=== PATIENT | male | born 1945 | race Caucasian/White ===

== ENCOUNTER 2017-04-12 06:50 | Day surgery (SDC) | payer MEDICARE, BC ==
[2017-04-12] VITALS (8 sets, daily range): BP systolic 102–144; BP diastolic 55–81
[~2017-04-12] VITALS: Ht 179.1 cm; Wt 95.3 kg
[2017-04-12] MEDS ORDERED: LIPITOR20 MG ORAL (07:29)
[2017-04-12] MEDS ORDERED: PAXIL10 MG ORAL (07:29)
[2017-04-12] MEDS ORDERED: EPINEPHrine 1mg/1ml Amp ONE (08:46)
[2017-04-12] MEDS ORDERED: Bupivacaine 0.25% Inj 30ml INJ ONE (08:46)
[2017-04-12] MEDS ORDERED: Lidocaine 1% 10mg/ml/EPI 0.01mg/ml 50ml INJ ONE (08:47)
[2017-04-12] MEDS ORDERED: Bupivacaine 0.5% Inj 30 ml vial INJ ONE (08:47)
[2017-04-12] MEDS ORDERED: LR 1000ml 1,000 ML IVLG SCH (09:26)
--- NOTE | 2017-04-12 09:26 | Anethesia Preoperative Eval ---
Anesthesia Pre-op PMH/ROS General Date of Evaluation: Apr 12, 2017 Anesthesiologist: Aldo ASA Score: ASA 2 Mallampati Score Class I : Soft palate, uvula, fauces, pillars visible Class II: Soft palate, uvula, fauces visible Class III: Soft palate, base of uvula visible Class IV: Only hard plate visible Mallampati Classification: Class III Surgeon: Javier Diagnosis: Left knee pain Surgical Procedure: Left knee arthroscopy Anesthesia History: none Family History: no anesthesia problems Allergies: Coded Allergies: No Known Allergies (Unverified , 04/12/17) Medications: see eMAR Past Medical History Cardiovascular: Reports: other - HLD, Denies: HTN, CAD, GA, valve dz, arrhythmia Pulmonary: Denies: asthma, COPD, DEDE, other Gastrointestinal/Genitourinary: Reports: other - prostate CA, Denies: GERD, CRI, ESRD Neurologic/Psychiatric: Reports: depression/anxiety, Denies: dementia, CVA, TIA, other Endocrine: Denies: DM, hypothyroidism, steroids, other HEENT: Denies: cataract (L), cataract (R), glaucoma, [place] (L), [place] (R), other Hematology/Immune: Denies: anemia, DVT, bleeding disorder, other Musculoskeletal/Integumentary: Denies: OA, RA, DJD, DDD, edema, other Other: obesity PSxH Narrative: lumbar fusion, prostatectomy Anesthesia Pre-op Phys. Exam Physician Exam Last Vital Signs Date Time Temp Pulse Resp B/P (MAP) Pulse Ox O2 Delivery O2 Flow Rate FiO2 04/12/17 07:32 98.0 59 20 136/81 97 Room Air Constitutional: NAD Cardiovascular: RRR Respiratory: CTA Airway Exam Mallampati Score: Class III MO: full ROM: full Teeth: intact Anesthesia Pre-op A/P Labs see chart Studies Pre-op Studies: EKG - sr Risk Assessment & Plan Assessment: ASA II Plan: GA Status Change Before Surgery: No Pre-Antibiotics Drug: Ancef 2g Given Within 1 Hr of Incision: JUANA Das M.D. Apr 12, 2017 09:26
[2017-04-12] MEDS ORDERED: Ketorolac 30mg Inj IV PRN (09:30)
[2017-04-12] MEDS ORDERED: Hydromorphone 0.5mg/0.5ml inj IVP PRN (09:30)
[2017-04-12] MEDS ORDERED: DiphenhydrAMINE 50mg/ml Inj IVP PRN (09:30)
[2017-04-12] MEDS ORDERED: Midazolam 2mg/2ml Inj IVP PRN (09:30)
[2017-04-12] MEDS ORDERED: fentaNYL 100 mcg/2 mL IV PRN (09:30)
[2017-04-12] MEDS ORDERED: LORazepam Inj 2mg/ml 1ml IV PRN (09:30)
--- NOTE | 2017-04-12 09:59 | Pre-Procedure Note/Attestation ---
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 I attest that, if there was a reasonable possibility of needing a blood transfusion, the patient (or the patient's legal home office representative) was given the [facility] standardized written summary, pursuant to the [place] Blood Safety Act ([place] Health and Safety Code # 1645, as amended). I attest that I re-evaluated the patient just prior to the surgery and that there has been no change in the patient's H&P, except as documented below: CORAL LABOY Apr 12, 2017 09:59
[2017-04-12] MEDS ORDERED: Tylenol #3 tab (300mg/30mg) ORAL PRN (10:00)
[2017-04-12] MEDS ORDERED: fentaNYL 100 mcg/2 mL IV ONE (10:00)
[2017-04-12] MEDS ORDERED: HYDROmorphone 1mg/ml Carpuject SUBQ PRN (10:00)
[2017-04-12] MEDS ORDERED: Propofol 200mg/20ml IV ONE (10:00)
[2017-04-12] MEDS ORDERED: LR 1000ml ONE (10:00)
[2017-04-12] MEDS ORDERED: NS Irrig 4000ml IRRIG ONE (10:00)
[2017-04-12] MEDS ORDERED: Lidocaine 1% MPF 10mg/ml 5ml ONE (10:00)
[2017-04-12] MEDS ORDERED: D5 1/2NS 1,000 ML IV SCH (10:00)
[2017-04-12] MEDS ORDERED: Ketorolac 30mg Inj ONE (10:00)
[2017-04-12] MEDS ORDERED: Midazolam 2mg/2ml Inj ONE (10:00)
[2017-04-12] MEDS ORDERED: Norco 5mg/325mg tab ORAL PRN (10:00)
--- NOTE | 2017-04-12 10:22 | Immediate Post-Op Evaluation ---
Immediate Post-Op Evalulation Immediate Post-Op Evalulation Procedure: Left knee arthroscopy, scar tissue excision Date of Evaluation: Apr 12, 2017 Time of Evaluation: 11:16 IV Fluids: 800 Blood Products: 0 Estimated Blood Loss: min Urinary Output: 0 Blood Pressure Systolic: 103 Blood Pressure Diastolic: 59 Pulse Rate: 67 Respiratory Rate: 16 O2 Sat by Pulse Oximetry: 100 Temperature (Fahrenheit): 97.8 Pain Score (1-10): 0 Nausea: No Vomiting: No Complications 0 Patient Status: awake, reacts, patent, none Hydration Status: adequate Drug: Ancef 2g Given Within 1 Hr of Incision: Yes Time Given: 10:05 JUANA MOLINA M.D. Apr 12, 2017 10:22
--- NOTE | 2017-04-12 10:24 | 48 Hour Post Anesthesia Eval ---
Post Anesthesia Evaluation Procedure: Left knee arthroscopy, scar tissue excision Date of Evaluation: Apr 12, 2017 Airway: patent Nausea: No Vomiting: No Pain Intensity: 0 Hydration Status: adequate Cardiopulmonary Status: at baseline Mental Status/LOC: patient returned to baseline Post-Anesthesia Complications: 0 Follow-up care needed: ready to discharge JUANA MOLINA M.D. Apr 12, 2017 10:24
--- NOTE | 2017-04-12 16:15 | Operative Note - Dictated ---
DATE OF OPERATION: 04/12/2017 SURGEON: Jhonny Herrera M.D. DBA: None. ANESTHESIA: General plus local. COMPLICATIONS: None. ANTIBIOTICS: Ancef. PREOPERATIVE DIAGNOSES: 1. Left knee patellar clunk syndrome. 2. Left knee synovitis. POSTOPERATIVE DIAGNOSES: 1. Left knee patellar clunk syndrome. 2. Left knee synovitis. PROCEDURE PERFORMED: Left knee arthroscopy (status post total knee arthroplasty) with: 1. Synovectomy. 2. Suprapatellar plica resection. BACKGROUND: The patient underwent a posterior substituting total knee arthroplasty performed elsewhere. He has done very well postoperatively save for developing patellar clunk syndrome. All risks, benefits, and alternatives of surgical intervention were discussed in great detail. Risks included, but were not limited to, bleeding, infection, neurovascular injury, need for additional surgical intervention, failure of pain relief, arthrofibrosis, complications of anesthesia, blood clots, stroke, heart attack, and potentially . He understood these risks, amongst others including recurrence, and consent was signed. PROCEDURE IN DETAIL: The patient was brought into the operating room and placed supine on the operating room table. The left knee was correctly verified for surgical site and prepped and draped in standard sterile fashion. Examination under anesthesia revealed no medial or lateral laxity, extension to 0 degrees, and flexion to 155 degrees. Anterolateral and anteromedial portals were marked and injected with 20 mL of 0.25% Marcaine with epinephrine. A diagnostic arthroscopy was then undertaken. It revealed the followin. Diffuse synovitis. 2. Significant synovitis of suprapatellar pouch. 3. Large suprapatellar plica connecting to the patellar implant. 4. Normal medial gutter. 5. Normal lateral gutter. 6. Well-positioned implant medially and laterally. 7. No polyethylene wear either medially or laterally. 8. Normal polyethylene post. In the suprapatellar region and down through the superior aspect of the gutters, a synovectomy was performed using a radiofrequency device. The large suprapatellar plica causing the patellar clunk was then resected in its entirety. A significant amount of tissue was resected. All fluid and debris were evacuated from the knee. A 10 mL of 0.25% Marcaine was injected. The wounds were copiously irrigated and reapproximated using 4-0 Monocryl in a subcuticular fashion. Steri-Strips were used over Mastisol. Dry sterile dressing was applied. A compressive stocking was fitted. I attest I performed the entire operation. He was transferred to recovery in good condition. Jhonny Herrera M.D. DR: LIAM JOB#: [id number] CC: MARTA
== END 2017-04-12 12:45 | disposition home or self-care (01) ==
LOC: SUR 06:50
DX: M65.9 Synovitis and tenosynovitis, unspecified (principal); M25.862 Other specified joint disorders, left knee; F41.9 Anxiety disorder, unspecified; F32.9 Major depressive disorder, single episode, unspecified; E78.5 Hyperlipidemia, unspecified; Z85.46 Personal history of malignant neoplasm of prostate; Z90.79 Acquired absence of other genital organ(s); Z96.652 Presence of left artificial knee joint
CPT/HCPCS: 29875; J0171; J0690; J1885; J2250; J2405; J2704; J3010; J3490; J7120; 94003; 94150